=== PATIENT | male | born 2000 | race Caucasian/White ===

== ENCOUNTER 2023-11-20 11:36 | Emergency (ER) | payer OTHER, SELFPAY ==
[2023-11-20 11:36] VITALS: BMI 21.3
[2023-11-20 11:37] VITALS: BP 119/67
--- NOTE | 2023-11-20 12:16 | ED.GENMED ---
History of Present Illness
General
Chief Complaint: Abdominal Pain
Source: patient
Time Seen by Provider: 11/20/23 11:48
History of Present Illness
History of Present Illness:
23yoM with a history of opioid abuse currently in a rehab facility (last use 2 months ago) presenting for evaluation of abdominal and testicular pain. Patient started with R testicular pain about a week ago. He then developed RLQ pain yesterday. He
was seen by a doctor at his rehab facility yesterday who performed an exam and told him that he may have a hernia. Patient reports mild dysuria but otherwise denies any urinary symptoms. No hematuria or penile discharge. He has some R sided back
pain as well which is worse with movement. He denies any fevers, vomiting, diarrhea. Last bowel movement was 2-3 days ago. No previous abdominal surgeries.
Phy Exam
General Physical Exam
General Presentation: well appearing and no apparent distress
General age: appears stated age
General Skin: warm and dry
General Habitus: normal
General Mental: alert
Cardiovascular Exam
Cardiovascular Exam: regular rate/rhythm
Pulmonary Exam
Pulmonary Exam: lungs clear, no respiratory distress, no crackles and no wheezing
Gastrointestinal Exam
Gastrointestinal Exam: soft, non distended and tender (+Tenderness to the RLQ/R inguinal region. No skin change or palpable hernia. No rebound or guarding. )
Genitourinary Exam Male
Exam Male: no testicular swelling and other (+R testicular tenderness without swelling or skin changes)
Cumming Coma Scale
Eye Opening: Spontaneous
Verbal Response: Oriented
Motor Response: Obeys Commands
GCS Total Score: 15
Skin Exam
Skin Exam: normal color and warm/dry
Psychiatric Exam
Psychiatric Exam: normal mood/affect
Course
Orders/Labs/Results
Orders:
Orders
11/20/23 12:14
0.9% Sodium Chloride 1000 ml [Nss] 1,000 ml IV BOLUS
Iohexol [Omnipaque] See Protocol PO NOW STA
Ketorolac [Toradol] 15 mg IV NOW STA
Scrotum US [US Scrotum] Urgent
Comment:
Reason For Exam: R testicular pain
11/20/23 12:15
CT Abd/pel W Iv And Oral Contr Urgent
Comment:
Reason For Exam: RLQ pain
11/20/23 12:26
Complete Blood Count/With Diff Urgent
Comprehensive Metabolic Panel Urgent
11/20/23 14:35
Urinalysis Reflex To Culture Urgent
Date Specimen was Collected: 11/20/23
Time Specimen was Collected: 14:32
11/20/23 14:39
Chlamydia/GC by PCR Urgent
ROSALVA Source: Urine
Specimen Description:
Source:: URINE
Date Specimen was Collected: 11/20/23
Time Specimen was Collected: 14:32
Abnormal Lab Results
11/20/23
12:26
RBC 4.51 L 10^6/uL
(4.70-6.10)
Hgb 12.8 L g/dL
(13.0-18.0)
Hct 37.5 L %
(39.0-52.0)
BUN 8 L mg/dl
(9-20)
Glucose 120 H mg/dl
(70-99)
Total Bilirubin 1.5 H mg/dl
(0.2-1.3)
11/20/23 12:26
11/20/23 12:26
Vital Signs
Initial and Last Documented VS:
Initial Vital Signs
Temp Pulse Resp BP Pulse Ox
98.2 F 60 16 119/67 98
11/20/23 11:37 11/20/23 11:37 11/20/23 11:37 11/20/23 11:37 11/20/23 11:37
Last Documented Vital Signs
Temp Pulse Resp BP Pulse Ox
98.2 F 63 16 124/72 100
11/20/23 11:37 11/20/23 13:36 11/20/23 14:00 11/20/23 13:36 11/20/23 13:36
MDM/Problems Addressed
Differential Diagnosis Includes:
23yoM here with RLQ pain x 1 day and R testicular pain x 1 week. He was seen by a physician who told him he may have a hernia. He is afebrile and hemodynamically stable. He is well appearing in no distress. No signs of peritonitis on abdominal exam.
No scrotal swelling noted. Differential diagnosis includes but is not limited to: appendicitis, mesenteric adenitis, kidney stone, hernia, orchitis, epididymitis, doubt but consider testicular torsion
Initial ED plan: Check CBC, CMP, UA, GC/chlamydia testing, scrotal ultrasound, and CT abdomen. IV Toradol and fluid bolus for symptoms.
*Critical Care Note
Total Time (30-74mins, 75-104mins- exclusive of procedures): Not Applicable
Update Note
Update Note:
Labs overall unremarkable including normal white count and renal function. UA bland without signs of infection or hematuria. Scrotal ultrasound is normal. CT abdomen is negative for acute findings other than a large stool burden. No imaging
evidence of appendicitis or hernia. Unclear etiology of symptoms. He was advised to follow-up with gastroenterology. He has an appointment with urology scheduled in 2 weeks from now. ED return precautions discussed. He was discharged in stable
condition.
ED Attending Note
-
Portions of this chart may have been created with voice recognition software.� Occasional wrong word or��sound alike� substitutions may have occurred due to the inherent limitations of voice recognition software.
Discharge Plan
Departure
Patient Disposition: Home (Routine Discharge)
Date of Disposition: 11/20/23
Time of Disposition: 16:35
Patient with high blood pressure during this ER visit?: No
Discharge Problem:
Right lower quadrant pain, Testicular pain, right
Instructions: Abdominal Pain
Referrals:
Yulissa Fu MD [Active] -
Rafael Wade MD [Active] -
UNKNOWN - PT DOES,NOT KNOW [Family Provider] -
Activity Restrictions/Additional Instructions:
Take Tylenol and ibuprofen as needed for pain. Apply heat to affected area.
Please follow-up with gastroenterology and urology. Return to the ER with any new or worsening symptoms.
Interventions
Interventions:
*Risk Screen - Suicide Last Done: 11/20/23 11:37
*General Assessment Last Done: 11/20/23 11:52
*Neglect/Abuse Screening Last Done: 11/20/23 11:37
*ED COVID-19 Vaccine History Last Done: 11/20/23 11:52
*Nursing Disposition Last Done: 11/20/23 16:54
WW-Rzbvkg-Vcoeaodqjd Assessment Last Done: 11/20/23 11:52
Discharge Date and Time
Discharge Date/Time: 11/20/23 16:55
Print Language: BULGARIAN
[2023-11-20] MEDS: NSS 1000 IV (12:31)
[2023-11-20] MEDS: OMNIPAQUE 50 ML PO (12:31)
[2023-11-20] MEDS: TORADOL 15 MG IV (12:31)
[2023-11-20 12:34] LABS: % Basophils 0.6 % (0-2); % Eosinophils 2.4 % (0-6); % Immature Granulocytes 0.2 % (0-0.5); % Lymphocytes 33.5 % (20.5-51.1); % Monocytes 7.2 % (1.7-9.3); % Neutrophils 56.1 % (42.2-75.2); Absolute Basophils 0.1 10^3/uL (0-0.2); Absolute Eosinophils 0.2 10^3/uL (0-0.7); Absolute Lymphocytes 2.7 10^3/uL (1.2-3.4); Absolute Monocytes 0.6 10^3/uL (0.1-0.6); Absolute Neutrophils 4.6 10^3/uL (1.4-6.5); Hematocrit 37.5 % (39.0-52.0); Hemoglobin 12.8 g/dL (13.0-18.0); Mean Corp Hgb Conc. 34.1 g/dL (33.0-37.0); Mean Corpuscular Hgb 28.4 pg (27.0-31.0); Mean Corpuscular Volume 83.1 fL (80.0-94.0); Mean Platelet Volume 9.3 fL (7.4-10.4); Nucleated Red Blood Cells % 0 % (-); Platelet Count 250 10^3/uL (130-400); Red Blood Cell Count 4.51 10^6/uL (4.70-6.10); Red Cell Dist. Width 12.2 % (11.5-14.5); White Blood Cell Count 8.2 10^3/uL (4.8-10.8)
[2023-11-20 13:00] LABS: ALT (SGPT) 11 U/L (0-50); AST (SGOT) 19 U/L (17-59); Albumin 4.3 g/dl (3.5-5.0); Alkaline Phosphatase 62 U/L (38-126); Blood Urea Nitrogen 8 mg/dl (9-20); Calcium 9.2 mg/dl (8.4-10.2); Carbon Dioxide 30 mmol/L (22-30); Chloride 101 mmol/L (98-107); Estimated Creatinine Clearance 124 ml/min; Glucose 120 mg/dl (70-99); Potassium 4.3 mmol/L (3.5-5.1); Sodium 140 mmol/L (135-145); Total Bilirubin 1.5 mg/dl (0.2-1.3); Total Protein 6.5 g/dl (6.3-8.2); eGFR > 60.00
[2023-11-20 13:36] VITALS: BP 124/72
[2023-11-20 14:46] LABS: Urine Albumin Negative (Neg - Trace); Urine Bilirubin Negative (Negative); Urine Character Clear (Clear); Urine Color Yellow; Urine Glucose Negative (Negative); Urine Ketone Negative (Negative); Urine Leukocyte Negative (Negative); Urine Nitrite Negative (Negative); Urine Occult Blood Negative (Negative); Urine Urobilinogen Negative (Neg - 1+); Urine pH 6.5 (5.0-9.0)
== END 2023-11-20 16:55 | disposition home or self-care (01) ==
LOC: EMR 11:36
PROVIDERS: Physician Assistant; EMERGENCY PHYSICIAN Student in an Organized Health Care Education/Training Program
DX: R10.31 Right lower quadrant pain (principal); N50.811 Right testicular pain; R30.0 Dysuria; M54.9 Dorsalgia, unspecified; F11.11 Opioid abuse, in remission
CPT/HCPCS: 99285; 96361; 96374; 74177; 76870; 80053; 81003; 85025; 87491; 87591; 93976; Q9967